=== PATIENT | female | born 1985 | race Caucasian/White ===

== ENCOUNTER → 2021-08-10 15:30 | Outpatient (CLI) | payer BC, SELFPAY ==
--- NOTE | ~2021-08-10 | US_ITS ---
EXAMINATION: US thyroid EXAM DATE: 08/10/2021 15:48 INDICATION: Family history of thyroid cancer. TECHNIQUE: Multiple grayscale and Doppler images of the thyroid were obtained (by a technologist who performed the scan) and subsequently reviewed. Individual nodules and recommendations may be reporte d in accordance with TI-RADS system as designated by the 2017 ACR White Paper TI-RADS committee. The re is no prior study for comparison. FINDINGS: Right thyroid lobe measures 4.4 x 1.2 x 1.6 cm, the left measuring 4.8 x 1.0 x 1.6 cm. There is no ob vious thyroid echogenicity without focal nodule identified. IMPRESSION: Unremarkable thyroid ultrasound exam. Reviewed, dictated and finalized at location A.
== END ==
PROVIDERS: Visit Provider Internal Medicine Endocrinology, Diabetes & Metabolism
DX: Z80.8 Family history of malignant neoplasm of other organs or systems (principal)
CPT/HCPCS: 76536

== ENCOUNTER 2022-07-10 08:07 | Emergency (ER) | payer BC, SELFPAY ==
--- NOTE | 2022-07-10 08:09 | ED.SKABFB ---
HPI - Skin/Abscess/Foreign Bdy General Chief complaint: Skin/Abscess/Foreign Body Stated complaint: bites on both legs Time Seen by Provider: 07/10/22 08:16 Source: patient and RN notes reviewed Mode of arrival: ambulatory Limitations: no limitations History of Present Illness HPI narrative: 37-year-old female presents with concern for an itchy rash on bilateral legs. She reports a week ago she was in a grassy area, she noticed later that day she had a few red raised areas. She thought perhaps they were chigger bites. She started using clear nail italian. She reports over the next several days more raised red areas popped up. Reports they are itchy. She reports she is try to use calamine lotion and hydrocortisone cream. She reports some areas are raised with fluid-filled blisters. MD complaint: rash Related Data Allergies Allergy/AdvReac Type Severity Reaction Status Date / Time No Known Allergies Allergy Verified 02/19/22 11:11 Review of Systems Review of Systems: CONSTITUTIONAL: Denies malaise, chills, sweats, or fever. EYES: Denies redness, or discharge. ENT: Denies rhinorrhea, congestion, swollen lips, swollen tongue CARDIOVASCULAR: Denies chest pain, palpitations, or edema. RESPIRATORY: Denies cough or dyspnea. GASTROINTESTINAL: Denies abdominal pain, nausea, vomiting SKIN: Reports itchy rash on bilateral legs MUSCULOSKELETAL: Denies joint pain or myalgia. NEUROLOGIC: Denies headache. All systems reviewed & are unremarkable except as noted in HPI and below PMFSH Past Medical History Medical History (Updated 07/10/22 @ 08:32 by Laura Perla NP) Family history of thyroid cancer Family History Family History Father Hypertension Depression Mother Thyroid cancer Sibling Thyroid cancer Grandparent Diabetes mellitus Hypertension Heart disease Social History Social History Smoking status: Never smoker Alcohol intake: current Drinks per week: 3 Substance use type: does not use Gender identity (if verbalized by the patient): Female Sexual Orientation (if Verbalized by the Patient): Straight or Heterosexual Comments At time of signature, agree with nursing past medical, surgical, social and family history. There is no relevant family history pertinent to the presenting complaint Exam Narrative: GENERAL: Well-appearing, well-nourished, and in no acute distress. HEAD: Normocephalic, atraumatic. EYES: PERRLA, conjunctivae clear ENT: Mucous membranes moist. NECK: Supple. No lymphadenopathy CHEST: Clear to auscultation. No respiratory distress. HEART: Regular rate and rhythm. SKIN: Warm, dry. Scattered erythematous papules, some scabbed areas, several in patches. Several areas of yellow fluid-filled blisters in linear patterns. NEURO: Alert and oriented x3. PSYCH: Normal mood and affect Course Course Emergency Course: Patient is aware of diagnosis, understands and agrees to treatment plan. Anticipatory guidance given. Patient agrees to follow-up as directed and is aware of reasons to seek care at the emergency department. Portions of this record may have been created with voice recognition software Level of Care: Express Care Visit Vital Signs Vital signs: Reviewed. MDM - Skin/Abscess/Foreign Bdy MDM Narrative Medical decision making narrative: Does not appear at this time to be erythema multiforme, bullous, SJS, TEN; no evidence at this time to suggest RMSF, endocarditis or Lyme disease; patient looks well, nontoxic and is tolerating oral intake; no neurologic signs or symptoms; no headache, photophobia or neck pain; afebrile; appropriate for initial outpatient treatment; discussed the importance of follow-up, patient agrees; question, viral exanthema, contact dermatitis, allergic dermatitis, eczema, urticaria, chigger bites, shingles, impetigo, contact dermatitis. No soft pa
[2022-07-10 08:14] VITALS: BP 105/76; PULSE 94; RESP 16; TEMP 36.6; O2SAT 100
== END 2022-07-10 08:39 | disposition home or self-care (01) ==
PROVIDERS: Emergency Provider Nurse Practitioner
DX: L25.9 Unspecified contact dermatitis, unspecified cause (principal); Z85.850 Personal history of malignant neoplasm of thyroid
CPT/HCPCS: 99213; G0463

== ENCOUNTER 2022-11-29 08:31 | Outpatient (CLI) | payer BC, SELFPAY ==
[2022-11-29 18:47] LABS: Kit Draw Collected
== END 2022-11-29 08:32 | disposition home or self-care (01) ==
LOC: ANHGOSHLAB 08:32
PROVIDERS: PCP Nurse Practitioner Family; Visit Provider Nurse Practitioner Family
DX: R53.83 Other fatigue (principal); E55.9 Vitamin D deficiency, unspecified
CPT/HCPCS: 36415